=== PATIENT | male | born 1995 | race Caucasian/White ===

== ENCOUNTER 2017-01-25 19:52 | Emergency (ER) | payer SELFPAY ==
[2017-01-25] MEDS ORDERED: Adacel (T-DAP) 0.5 ML VIAL ONE (20:14)
== END 2017-01-25 20:45 | disposition home or self-care (01) ==
LOC: NAV ERS 19:52
DX: S01.112A Laceration without foreign body of left eyelid and periocular area, initial encounter (principal); W22.8XXA Striking against or struck by other objects, initial encounter; Y99.0 Civilian activity done for income or pay
CPT/HCPCS: 12013; 90471; 90715